=== PATIENT | female | born 1950 | race Caucasian/White ===

== ENCOUNTER 2023-06-18 15:55 | Inpatient (IN) | payer MEDICARE, BC ==
[~2023-06-18] VITALS: Ht 167.6 cm; Wt 55.3 kg
[2023-06-18] MEDS ORDERED: SYNTHROID (16:14)
[2023-06-18] MEDS ORDERED: WELLBUTRIN (16:14)
[2023-06-18] MEDS ORDERED: PROPRANOLOL (16:14)
[2023-06-18] MEDS ORDERED: EFFEXOR (16:14)
[2023-06-18] MEDS ORDERED: TOPAMAX (16:14)
[2023-06-18] MEDS ORDERED: MORPHINE SULFATE 2 MG/1 ML DISP.SYRIN IV ONE (16:15)
[2023-06-18] MEDS ORDERED: ONDANSETRON 4 MG/2 ML VIAL IV ONE (16:15)
[2023-06-18] MEDS ORDERED: IV NORMAL SALINE 1000 ML BAG IV ONE (16:15)
[2023-06-18] MEDS ORDERED: MORPHINE SULFATE 2 MG/1 ML DISP.SYRIN ONE (16:21)
[2023-06-18] MEDS ORDERED: ONDANSETRON 4 MG/2 ML VIAL ONE (16:21)
[2023-06-18 16:44] LABS: BASOPHILS # (AUTO) 0.1 K/UL (0.0-0.2); BASOPHILS % (AUTO) 0.5 % (0.0-2.0); EOSINOPHILS # (AUTO) 0.2 K/uL (0.0-0.7); EOSINOPHILS % (AUTO) 1.5 % (0.0-7.0); HEMATOCRIT 37.7 % (31.2-41.9); HEMOGLOBIN 12.8 g/dL (10.9-14.3); LYMPHOCYTES # (AUTO) 1.1 K/uL (0.8-4.8); LYMPHOCYTES % (AUTO) 10.7 % (20.5-51.5); MEAN CORPUSCULAR HEMOGLOBIN 29.4 uug (24.7-32.8); MEAN CORPUSCULAR HGB CONC 34 g/dL (32.3-35.6); MEAN CORPUSCULAR VOLUME 86.3 fL (75.5-95.3); MONOCYTES # (AUTO) 1.2 K/uL (0.1-1.30); MONOCYTES % (AUTO) 11.5 % (0.0-11.0); NEUTROPHILS # (AUTO) 7.8 K/uL (1.8-8.9); NEUTROPHILS % (AUTO) 75.8 % (38.5-71.5); PLATELET COUNT (AUTO) 356 K/uL (179-408); RED BLOOD CELL COUNT(AUTO) 4.38 MIL/uL (3.63-4.92); RED CELL DISTRIBUTION WIDTH 13.5 % (12.3-17.7); WHITE BLOOD COUNT (AUTO) 10.3 K/uL (3.8-11.8)
[2023-06-18 16:52] LABS: CALCIUM 9.1 mg/dL (8.5-10.1); CARBON DIOXIDE 23 mmol/L (21-32); CHLORIDE 104 mmol/L (98-107); CREATININE 0.8 mg/dL (0.6-1.3); DIFFERENTIAL COMMENT 1; GLUCOSE 98 mg/dL (74-106); POTASSIUM 3.6 mmol/L (3.5-5.1); SODIUM SERUM 141 mmol/L (136-145); UREA NITROGEN, BLOOD 12 mg/dL (7-18)
[2023-06-18 17:00] LABS: ALANINE AMINOTRANSFERASE 43 U/L (14-59); ALBUMIN 3.1 g/dL (3.4-5.0); ALKALINE PHOSPHATASE 122 U/L (50-136); ASPARTATE AMINOTRANSFERASE 36 U/L (15-37); BILIRUBIN,DIRECT 0.2 mg/dL (0.0-0.2); BILIRUBIN,TOTAL 0.4 mg/dL (0.2-1.0); TOTAL PROTEIN, SERUM 6.8 g/dL (6.4-8.2)
[2023-06-18] MEDS ORDERED: MORPHINE SULFATE 4 MG/1 ML DISP.SYRIN ONE (17:28)
[2023-06-18] MEDS ORDERED: MORPHINE SULFATE 4 MG/1 ML DISP.SYRIN IV ONE (17:30)
[2023-06-18 19:53] LABS: LIPASE 48 U/L (73-393)
[2023-06-18 20:48] VITALS: BP 128/58; TEMP 98.2; O2SAT 94
[2023-06-18 22:00] LABS: THYROID STIMULATING HORMONE 1.28 mIU/mL (0.358-3.740)
[2023-06-18] MEDS ORDERED: MAGNESIUM HYDROXIDE 30 ML LIQUID UDC PO PRN (23:45)
[2023-06-18] MEDS ORDERED: ACETAMINOPHEN 325 MG TABLET PO PRN (23:45)
[2023-06-18] MEDS ORDERED: TEMAZEPAM 15 MG CAPSULE PO PRN (23:45)
[2023-06-18] MEDS ORDERED: ONDANSETRON 4 MG/2 ML VIAL IV PRN (23:45)
[2023-06-19] MEDS: HYDROCODONE/APAP 5-325MG TABLET PO PRN ×2 (00:21→09:08)
[2023-06-19 04:00] VITALS: BP 118/68; TEMP 98; O2SAT 94
[2023-06-19 06:47] LABS: CALCIUM 8.7 mg/dL (8.5-10.1); CREATININE 0.9 mg/dL (0.6-1.3); MAGNESIUM 2.2 mg/dL (1.8-2.4); PHOSPHOROUS 3.5 mg/dL (2.5-4.9); POTASSIUM 3.7 mmol/L (3.5-5.1)
[2023-06-19 07:02] LABS: BASOPHILS % (AUTO) 0.4 % (0.0-2.0); DIFFERENTIAL COMMENT 1; EOSINOPHILS # (AUTO) 0.3 K/uL (0.0-0.7); EOSINOPHILS % (AUTO) 4.4 % (0.0-7.0); HEMATOCRIT 37.3 % (31.2-41.9); HEMOGLOBIN 12.4 g/dL (10.9-14.3); LYMPHOCYTES # (AUTO) 1.4 K/uL (0.8-4.8); LYMPHOCYTES % (AUTO) 18.4 % (20.5-51.5); MEAN CORPUSCULAR HEMOGLOBIN 28.8 uug (24.7-32.8); MEAN CORPUSCULAR HGB CONC 33 g/dL (32.3-35.6); MEAN CORPUSCULAR VOLUME 86.9 fL (75.5-95.3); MONOCYTES % (AUTO) 13.1 % (0.0-11.0); NEUTROPHILS % (AUTO) 63.7 % (38.5-71.5); PLATELET COUNT (AUTO) 324 K/uL (179-408); RED CELL DISTRIBUTION WIDTH 14.1 % (12.3-17.7); WHITE BLOOD COUNT (AUTO) 7.8 K/uL (3.8-11.8)
[2023-06-19] MEDS ORDERED: PROP120C54 PO (10:15)
[2023-06-19] MEDS ORDERED: LEVO50TA PO (10:15)
[2023-06-19] MEDS ORDERED: VENL225T PO (10:15)
[2023-06-19] MEDS ORDERED: TOPI200T PO (10:17)
[2023-06-19 12:00] VITALS: BP 129/60; TEMP 98.6; O2SAT 96
[2023-06-19] MEDS: MORPHINE SULFATE 2 MG/1 ML DISP.SYRIN IV PRN ×3 (12:16→22:08)
[2023-06-19] MEDS: DOCUSATE SODIUM 100 MG CAPSULE PO SCH ×2 (12:16→20:46)
[2023-06-19 16:00] VITALS: BP 116/68; TEMP 97.9; O2SAT 98
[2023-06-19 20:00] VITALS: BP 132/66; TEMP 97.6; O2SAT 97
[2023-06-19] MEDS ORDERED: SENNOSIDES 1 TABLET PO SCH (21:00)
[2023-06-20] MEDS: MORPHINE SULFATE 2 MG/1 ML DISP.SYRIN IV PRN ×4 (02:43→17:56)
[2023-06-20 04:00] VITALS: BP 147/85; TEMP 98.5; O2SAT 97
[2023-06-20] MEDS: DOCUSATE SODIUM 100 MG CAPSULE PO SCH (08:33)
== END 2023-06-20 18:27 | DRG 543 ==
LOC: ER 15:56 → MEDSURG3 18:52
PROVIDERS: ADMIT Nurse Practitioner Acute Care; ATTEND Nurse Practitioner Acute Care
DX: M48.55XA Collapsed vertebra, not elsewhere classified, thoracolumbar region, initial encounter for fracture (principal); E44.1 Mild protein-calorie malnutrition; Z68.1 Body mass index [BMI] 19.9 or less, adult; W19.XXXA Unspecified fall, initial encounter; E03.9 Hypothyroidism, unspecified; E78.5 Hyperlipidemia, unspecified; E88.09 Other disorders of plasma-protein metabolism, not elsewhere classified; F41.9 Anxiety disorder, unspecified; Z87.11 Personal history of peptic ulcer disease; Z88.0 Allergy status to penicillin; I10 Essential (primary) hypertension; F31.9 Bipolar disorder, unspecified; G43.909 Migraine, unspecified, not intractable, without status migrainosus; M47.816 Spondylosis without myelopathy or radiculopathy, lumbar region; G89.11 Acute pain due to trauma; Y93.9 Activity, unspecified; Y92.009 Unspecified place in unspecified non-institutional (private) residence as the place of occurrence of the external cause; Z96.641 Presence of right artificial hip joint; Z88.2 Allergy status to sulfonamides
CPT/HCPCS: 36415; 71045; 72131; 83690; 83735; 84100; 84443; 84484; 85025; 93005; A4663; G0378; J2270; J2405; J7040

== ENCOUNTER 2023-06-20 18:30 | Inpatient (IN) | payer MEDICARE, BC ==
[~2023-06-20] VITALS: Ht 167.6 cm; Wt 55.3 kg
[~2023-06-20 18:30] MED LIST: LEVO50TA PO; PROP120C54 PO; TOPI200T PO; VENL225T PO
[2023-06-20 20:10] VITALS: BP 150/78; TEMP 98.2; O2SAT 94
[2023-06-20] MEDS: OXYCODONE HCL 5 MG TABLET PO PRN (22:20)
[2023-06-21] MEDS: OXYCODONE HCL 5 MG TABLET PO PRN ×4 (03:35→17:58)
[2023-06-21 04:24] VITALS: BP 137/70; TEMP 97.9; O2SAT 94
[2023-06-21] MEDS: LEVOTHYROXINE SODIUM 50 MCG TABLET PO SCH (08:22)
[2023-06-21] MEDS: VENLAFAXINE XR 75 MG TAB.ER.24H PO SCH (08:22)
[2023-06-21] MEDS: TOPIRAMATE 100 MG TABLET PO SCH ×2 (08:23→17:02)
[2023-06-21] MEDS: REMEDY ESSENTIAL ZINC PASTE 113 GM TOP SCH ×2 (08:24→21:00)
[2023-06-21] MEDS: PROPRANOLOL LA 60 MG CAP.SA.24H PO SCH (11:31)
[2023-06-21] MEDS ORDERED: CLONIDINE HCL 0.1 MG TABLET PO PRN (19:30)
[2023-06-21 20:00] VITALS: BP 141/82; TEMP 98; O2SAT 94
[2023-06-21] MEDS: MORPHINE SULFATE SR 15 MG TABLET.SA PO SCH (22:17)
[2023-06-22 04:00] VITALS: BP 133/69; TEMP 98.8; O2SAT 93
[2023-06-22 08:00] VITALS: BP 147/70; TEMP 98.2; O2SAT 95
[2023-06-22] MEDS: PROPRANOLOL LA 60 MG CAP.SA.24H PO SCH (09:27)
[2023-06-22] MEDS: LEVOTHYROXINE SODIUM 50 MCG TABLET PO SCH (09:28)
[2023-06-22] MEDS: VENLAFAXINE XR 75 MG TAB.ER.24H PO SCH (09:28)
[2023-06-22] MEDS: TOPIRAMATE 100 MG TABLET PO SCH ×2 (09:28→17:33)
[2023-06-22] MEDS: REMEDY ESSENTIAL ZINC PASTE 113 GM TOP SCH ×2 (09:29→20:41)
[2023-06-22] MEDS: MORPHINE SULFATE SR 15 MG TABLET.SA PO SCH ×2 (09:54→20:40)
[2023-06-22] MEDS: CALCITONIN,SALMON,SYNTHETIC 3.7 ML SPRAY.PUMP NS SCH (10:59)
[2023-06-22] MEDS: CALCIUM CARB/VITAMIN D 600-400 MG TABLET PO SCH ×2 (10:59→20:37)
[2023-06-22 16:38] VITALS: BP 99/49; TEMP 98.2; O2SAT 93
[2023-06-22] MEDS: DOCUSATE SODIUM 100 MG CAPSULE PO SCH (20:38)
[2023-06-22 22:03] VITALS: BP 144/51; TEMP 98; O2SAT 99
[2023-06-23 05:43] VITALS: BP 112/54; TEMP 98.2; O2SAT 98
[2023-06-23 07:49] VITALS: BP 144/56; TEMP 97.6; O2SAT 100
[2023-06-23] MEDS: DOCUSATE SODIUM 100 MG CAPSULE PO SCH ×2 (08:42→20:21)
[2023-06-23] MEDS: VENLAFAXINE XR 75 MG TAB.ER.24H PO SCH (08:42)
[2023-06-23] MEDS: CALCIUM CARB/VITAMIN D 600-400 MG TABLET PO SCH ×2 (08:42→20:20)
[2023-06-23] MEDS: LEVOTHYROXINE SODIUM 50 MCG TABLET PO SCH (08:42)
[2023-06-23] MEDS: TOPIRAMATE 100 MG TABLET PO SCH ×2 (08:42→17:12)
[2023-06-23] MEDS: PROPRANOLOL LA 60 MG CAP.SA.24H PO SCH (08:43)
[2023-06-23] MEDS: REMEDY ESSENTIAL ZINC PASTE 113 GM TOP SCH ×2 (08:44→20:22)
[2023-06-23] MEDS: CALCITONIN,SALMON,SYNTHETIC 3.7 ML SPRAY.PUMP NS SCH (08:44)
[2023-06-23] MEDS: MORPHINE SULFATE SR 15 MG TABLET.SA PO SCH ×2 (09:03→20:20)
[2023-06-23 15:39] VITALS: BP 123/53; TEMP 97.9; O2SAT 96
[2023-06-23 15:44] LABS: HEMATOCRIT 35.6 % (31.2-41.9); HEMOGLOBIN 11.7 g/dL (10.9-14.3)
[2023-06-23] MEDS ORDERED: GUAIFENESIN/DEXTROMETHORPHAN 5 ML UDC PO PRN (16:15)
[2023-06-23 20:00] VITALS: BP 108/52; TEMP 98.7; O2SAT 91
[2023-06-23 20:52] VITALS: O2SAT 95
[2023-06-24 04:00] VITALS: BP 134/68; TEMP 98.6; O2SAT 98
[2023-06-24 07:59] VITALS: BP 130/48; TEMP 98.2; O2SAT 92
[2023-06-24] MEDS: VENLAFAXINE XR 75 MG TAB.ER.24H PO SCH (08:40)
[2023-06-24] MEDS: MORPHINE SULFATE SR 15 MG TABLET.SA PO SCH ×2 (08:40→20:30)
[2023-06-24] MEDS: CALCIUM CARB/VITAMIN D 600-400 MG TABLET PO SCH ×2 (08:40→20:30)
[2023-06-24] MEDS: DOCUSATE SODIUM 100 MG CAPSULE PO SCH ×2 (08:40→20:30)
[2023-06-24] MEDS: TOPIRAMATE 100 MG TABLET PO SCH ×2 (08:40→16:31)
[2023-06-24] MEDS: LEVOTHYROXINE SODIUM 50 MCG TABLET PO SCH (08:40)
[2023-06-24] MEDS: CALCITONIN,SALMON,SYNTHETIC 3.7 ML SPRAY.PUMP NS SCH (08:41)
[2023-06-24] MEDS: PROPRANOLOL LA 60 MG CAP.SA.24H PO SCH (08:42)
[2023-06-24] MEDS: REMEDY ESSENTIAL ZINC PASTE 113 GM TOP SCH ×2 (08:44→21:58)
[2023-06-24] MEDS: OXYCODONE HCL 5 MG TABLET PO PRN (15:05)
[2023-06-24 16:00] VITALS: BP 129/56; TEMP 98.2; O2SAT 95
[2023-06-24 20:30] VITALS: BP 111/49; TEMP 97.7; O2SAT 96
[2023-06-25 04:00] VITALS: BP 106/49; TEMP 97.7; O2SAT 95
[2023-06-25 08:00] VITALS: BP 110/43; TEMP 97.9; O2SAT 93
[2023-06-25] MEDS: CALCIUM CARB/VITAMIN D 600-400 MG TABLET PO SCH ×2 (08:22→20:30)
[2023-06-25] MEDS: VENLAFAXINE XR 75 MG TAB.ER.24H PO SCH (08:22)
[2023-06-25] MEDS: DOCUSATE SODIUM 100 MG CAPSULE PO SCH ×2 (08:22→20:30)
[2023-06-25] MEDS: MORPHINE SULFATE SR 15 MG TABLET.SA PO SCH ×2 (08:22→20:30)
[2023-06-25] MEDS: LEVOTHYROXINE SODIUM 50 MCG TABLET PO SCH (08:22)
[2023-06-25] MEDS: TOPIRAMATE 100 MG TABLET PO SCH ×2 (08:22→16:41)
[2023-06-25] MEDS: REMEDY ESSENTIAL ZINC PASTE 113 GM TOP SCH ×2 (08:23→21:15)
[2023-06-25] MEDS: PROPRANOLOL LA 60 MG CAP.SA.24H PO SCH (08:24)
[2023-06-25] MEDS: CALCITONIN,SALMON,SYNTHETIC 3.7 ML SPRAY.PUMP NS SCH (08:25)
[2023-06-25] MEDS: OXYCODONE HCL 5 MG TABLET PO PRN (09:48)
[2023-06-25 16:51] VITALS: BP 96/43; TEMP 98.3; O2SAT 94
[2023-06-25 20:00] VITALS: BP 93/52; TEMP 98.1; O2SAT 95
[2023-06-26 08:00] VITALS: BP_SYST 127; BP_DIAS 50; BP_DIAS 52; TEMP 97.7; O2SAT 96
[2023-06-26] MEDS: LEVOTHYROXINE SODIUM 50 MCG TABLET PO SCH (08:07)
[2023-06-26] MEDS: CALCIUM CARB/VITAMIN D 600-400 MG TABLET PO SCH (08:10)
[2023-06-26] MEDS: VENLAFAXINE XR 75 MG TAB.ER.24H PO SCH (08:10)
[2023-06-26] MEDS: DOCUSATE SODIUM 100 MG CAPSULE PO SCH (08:10)
[2023-06-26] MEDS: TOPIRAMATE 100 MG TABLET PO SCH ×2 (08:10→17:34)
[2023-06-26] MEDS: MORPHINE SULFATE SR 15 MG TABLET.SA PO SCH (08:11)
[2023-06-26] MEDS: REMEDY ESSENTIAL ZINC PASTE 113 GM TOP SCH (08:12)
[2023-06-26] MEDS: PROPRANOLOL LA 60 MG CAP.SA.24H PO SCH (08:16)
[2023-06-26] MEDS: CALCITONIN,SALMON,SYNTHETIC 3.7 ML SPRAY.PUMP NS SCH (08:18)
[2023-06-26 16:00] VITALS: BP 110/50; TEMP 98.1; O2SAT 93
[2023-06-26] MEDS: OXYCODONE HCL 5 MG TABLET PO PRN (19:36)
== END 2023-06-26 19:55 | disposition home health service (06) | DRG 559 ==
PROVIDERS: ADMIT Physical Medicine & Rehabilitation Pain Medicine; ATTEND Physical Medicine & Rehabilitation Pain Medicine
DX: M48.55XD Collapsed vertebra, not elsewhere classified, thoracolumbar region, subsequent encounter for fracture with routine healing (principal); E43 Unspecified severe protein-calorie malnutrition; E03.9 Hypothyroidism, unspecified; E78.5 Hyperlipidemia, unspecified; M81.0 Age-related osteoporosis without current pathological fracture; F31.9 Bipolar disorder, unspecified; E88.09 Other disorders of plasma-protein metabolism, not elsewhere classified; F41.9 Anxiety disorder, unspecified; G43.909 Migraine, unspecified, not intractable, without status migrainosus; I10 Essential (primary) hypertension; Z87.11 Personal history of peptic ulcer disease; Z88.0 Allergy status to penicillin; Z88.2 Allergy status to sulfonamides; Z96.641 Presence of right artificial hip joint; F32.A Depression, unspecified
CPT/HCPCS: 36415; 82652; 85018